=== PATIENT | male | born 1970 | race Caucasian/White ===

== ENCOUNTER 2018-10-17 07:03 | Emergency (ER) | payer OTHER ==
[2018-10-17 07:19] VITALS: BP 93/56; PULSE 53; TEMP 97.9; BMI 23.6
--- NOTE | 2018-10-17 07:39 | PDOC ---
History of Present Illness - General Chief Complaint: Injury Stated Complaint: FINGER LAC Time Seen by Provider: 10/17/18 07:38 History Source: Patient Exam Limitations: No Limitations - History of Present Illness Initial Comments: 10/17/18 07:41 47 year old male, left hand dominant, no pmh, p/w laceration to skin overlying 3rd left digit medial phalanx. This occurred yesterday approx 4 pm while using a kitchen knife. The laceration was very superficial, so patient attempted to control bleeding. Went to bed unremarkable. Woke up and noted that the bleeding hasn't stopped. No numbness, weakness. Able to flex and extend all digits. Past History - Past Medical History Allergies/Adverse Reactions: Allergies Allergy/AdvReac Type Severity Reaction Status Date / Time No Known Allergies Allergy Unverified 10/17/18 07:09 Home Medications: Ambulatory Orders NK [No Known Home Medication] 10/17/18 COPD: No - Suicide/Smoking/Psychosocial Hx Smoking History: Never smoked Review of Systems - Review of Systems Able to Perform ROS?: Yes Comments:: 10/17/18 07:42 GENERAL/CONSTITUTIONAL: [No fever or chills. No weakness. No weight change.] HEAD, EYES, EARS, NOSE AND THROAT: [No change in vision. No ear pain or discharge. No sore throat.] CARDIOVASCULAR: [No chest pain or shortness of breath.] RESPIRATORY: [No cough, wheezing, or hemoptysis.] GASTROINTESTINAL: [No nausea, vomiting, diarrhea or constipation. No rectal bleeding.] GENITOURINARY: [No dysuria, frequency, or change in urination.] MUSCULOSKELETAL: [No joint or muscle swelling or pain. No neck or back pain.] SKIN AND BREASTS: [No rash or easy bruising.] +laceration to 3rd left digit NEUROLOGIC: [No headache, vertigo, loss of consciousness, or loss of sensation.] PSYCHIATRIC: [No depression or anxiety.] ENDOCRINE: [No increased thirst. No abnormal weight change.] HEMATOLOGIC/LYMPHATIC: [No anemia, easy bleeding, or history of blood clots.] ALLERGIC/IMMUNOLOGIC: [No hives or skin allergy. No latex allergy.] *Physical Exam - Vital Signs Last Vital Signs Temp Pulse Resp BP Pulse Ox 97.9 F 53 L 14 93/56 L 99 10/17/18 07:10 10/17/18 07:10 10/17/18 07:10 10/17/18 07:10 10/17/18 07:10 - Physical Exam Comments: 10/17/18 07:42 GENERAL: Awake, alert, and fully oriented, in no acute distress HEAD: No signs of trauma EYES: EOMI, sclera anicteric, conjunctiva clear ENT: Auricles normal inspection, hearing grossly normal, nares patent NECK: Normal ROM, supple EXTREMITIES: LUE: 2+ radial pulse. Sensation and strength intact in median/radian/ulnar nerve distribution. Able to flex and extend all digits. < 2 sec cap refill. ~ 0.5 cm very superficial linear laceration to 3rd left digit medial to the middle phalanx. NEUROLOGICAL: Cranial nerves II through XII grossly intact. Normal speech, normal gait SKIN: Warm, Dry, normal turgor, no rashes or lesions noted. Procedures - Additional Procedures Progress: 10/17/18 07:44 Wound soaked and irrigated with normal saline and betadine. Dermabond applied with successful cessation of bleeding. Soft finger splint applied to decrease movement of finger while healing. Medical Decision Making - Medical Decision Making 10/17/18 07:44 Vital Signs Temp Pulse Resp BP Pulse Ox 97.9 F 53 L 14 93/56 L 99 10/17/18 07:10 10/17/18 07:10 10/17/18 07:10 10/17/18 07:10 10/17/18 07:10 Last tetanus was approximately 6 to 7 years ago. No need to update tetanus at this time given use of clean kitchen knife at home. No evidence of neurovascular injury. Wound amenable to dermabond. Wound irrigated copiously with normal saline with betadine. Dermabond applied with successful closure. Soft finger splint applied. Supportive care. Return to ED in case if wound opens up. Pt verbalizes understanding and agrees with plan. I discussed the physical exam findings, ancillary test results and final diagnoses with the patient. I answered all of the patient's questions. The patient was satisfied with the care received and felt comfortable with the discharge plan and treatment plan. The patient will call their primary care physician within 24 hours to arrange follow-up and will return to the Emergency Department with any new, persistant or worsening symptoms. *DC/Admit/Observation/Transfer Diagnosis at time of Disposition: Laceration - Discharge Dispostion Disposition: HOME Condition at time of disposition: Stable Decision to Admit order: No - Referrals - Patient Instructions Printed Discharge Instructions: DI for Laceration Repair With Dermabond Additional Instructions: You have a tissue adhesive applied to your wound. Please wear the splint whenever you can to decrease the movement of your finger while you are healing. It may take several days before the wound heals completely. In the meantime, you may take 650 mg tylenol every 4 hours as needed for pain. If the wound opens, please return to the ER. - Post Discharge Activity
== END 2018-10-17 07:54 | disposition home or self-care (01) ==
LOC: FER 07:03
PROC: 0HQGXZZ Repair Left Hand Skin, External Approach (ICD-10-PCS; principal; 2018-10-17)
DX: S61.213A Laceration without foreign body of left middle finger without damage to nail, initial encounter (principal); W26.0XXA Contact with knife, initial encounter; Y93.9 Activity, unspecified; Y92.000 Kitchen of unspecified non-institutional (private) residence as the place of occurrence of the external cause
CPT/HCPCS: 99281-25

== ENCOUNTER 2019-05-14 06:37 | Emergency (ER) | payer OTHER ==
--- NOTE | 2019-05-14 06:40 | PDOC ---
History of Present Illness - General Chief Complaint: Cold Symptoms Stated Complaint: FEVER Time Seen by Provider: 05/14/19 06:39 - History of Present Illness Initial Comments: 05/14/19 07:03 This 48-year-old man with a history of migraine headache but no other significant past medical history presents with a 2-day history of low-grade fever, nonproductive cough and body aches. No known sick contacts; no recent travel. He denies significant sore throat, nausea/vomiting/diarrhea. Patient has been taking Tylenol as needed for fever(Tmax "around 100 degrees"). He is concerned that he may develop a migraine; states that he has run out of his sumatriptan. Currently, he has very mild photophobia but no significant headache. Patient is concerned whether he should be tested for the flu and whether he should receive any treatment for it. Allergy: Phenobarbital On no daily medications Non-smoker; no daily alcohol or other recreational drug use Past History - Past Medical History Allergies/Adverse Reactions: Allergies Allergy/AdvReac Type Severity Reaction Status Date / Time No Known Allergies Allergy Unverified 10/17/18 07:09 Home Medications: Ambulatory Orders Acetaminophen [Non-Aspirin Extra Strength] 1,000 mg PO ONCE 05/14/19 Sumatriptan Succinate 100 mg PO ONCE PRN #10 tablet MDD 2 tabs 05/14/19 COPD: No - Psycho Social/Smoking Cessation Hx Smoking History: Never smoked Review of Systems - Review of Systems Able to Perform ROS?: Yes Comments:: 12 point review of systems is negative except for what is noted in the history of present illness *Physical Exam - Physical Exam GENERAL: Adult male, alert and oriented x3, no acute distress HEAD: Normal with no signs of trauma. EYES: PERRLA, EOMI, sclera anicteric, conjunctiva clear. ENT: Ears normal, nares patent, oropharynx clear without exudates. Moist mucous membranes. NECK: Normal range of motion, supple without lymphadenopathy, JVD, or masses. LUNGS: Breath sounds equal, clear to auscultation bilaterally. No wheezes, and no crackles. HEART:Regular rate and rhythm, normal S1 and S2 without murmur, rub or gallop. ABDOMEN:.normal bowel sounds No guarding,tenderness or rebound.No masses No distention. EXTREMITIES: Normal range of motion, no edema. No clubbing or cyanosis. No erythema, or tenderness. NEUROLOGICAL: Cranial nerves II through XII grossly intact. Normal speech. No focal neurological deficits. MUSCULOSKELETAL: Back non-tender to palpation, no CVA tenderness SKIN: Warm, Dry, normal turgor, no rashes or lesions noted. Medical Decision Making - Medical Decision Making As noted above, otherwise healthy 48-year-old man presents with a few day history of low-grade fever, nonproductive cough, body aches. Patient is able to hydrate himself he has no vomiting or diarrhea. Exam as noted It was explained to the patient that he has no underlying illness making him more susceptible to complications of the flu; otherwise healthy non-elderly adults can recover with rest and fluids with treatment to control fever. Therefore, antiviral medications are not mandatory Patient is concerned because he has run out of his migraine medication (Imitrex ) and feels that he may be developing migraine headache. Prescription for Imitrex, 100 mg up to 2 times a day for migraine (#10)[patient states that this was the dosage that he had been prescribed in the past] sent to his pharmacy Discharge - Discharge Information Problems reviewed: Yes Clinical Impression/Diagnosis: Viral syndrome Condition: Stable Disposition: HOME - Additional Discharge Information Prescriptions: Sumatriptan Succinate 100 mg PO ONCE PRN #10 tablet MDD 2 tabs PRN Reason: Headache - Follow up/Referral Referrals: ON STAFF,NOT [Primary Care Provider] - - Patient Discharge Instructions Patient Printed Discharge Instructions: DI for Viral Syndrome Additional Instructions: Rest; drink plenty of fluids Tylenol/Motrin/Aleve as needed for fever and body aches Sumatriptan 100 mg for migraine as needed Return to ER if you have persistent high fever, shortness of breath, severe cough Return to ER if you have persistent migraine headache Follow-up with your doctor within the next 5 days - Post Discharge Activity
[2019-05-14 06:44] VITALS: BP 106/68; PULSE 84; TEMP 99.5; BMI 23.6
== END 2019-05-14 07:02 | disposition home or self-care (01) ==
LOC: FER 06:37
DX: B34.9 Viral infection, unspecified (principal); Z88.2 Allergy status to sulfonamides
CPT/HCPCS: 99283-25